=== PATIENT | male | born 1990 | race Hispanic/Latino ===

== ENCOUNTER 2019-08-22 00:03 | Emergency (ER) | payer SELFPAY ==
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
--- OUTSIDE RECORDS SUMMARY | 2019-08-22 00:05 | XMS REPORT | Summary of Care ---
:1990 Author Organization [facility] Address [address] [place] [id number] Care Team Providers Name Role Phone Pcp, Patient Does Not Have A Primary Care Provider Reason for Visit Reason Comments Establish Care Testicle Problem (Routine) Status Reason Specialty Diagnoses / Procedures Referred By Contact Referred To Contact Closed Urology Diagnoses Hydrocele, unspecified Prabhu-Rayray, Procedures CONSULT/REFERRAL UROLOGY [place] [address] [place] [address] Encounter Details Date Type Department Care Team Description 05/18/2019 Office Visit [facility] Cancer Chonoski, Chanelle Testalgia ( Primary Dx); Center-Urologic N, RELEASE OF INFORMATION CLERK Hydrocele, bilateral Oncology [address] [facility] [address] [facility] [address] [place] [id number] Allergies No Known Allergiesdocumented as of this [...] Note / History and Physical Referred by: [facility] Chief Complaint: Testicular pain / [...] file Gets together: Not on file Attends methodist service: Not on file Active member of [...]
--- OUTSIDE RECORDS SUMMARY | 2019-08-22 00:05 | XMS REPORT ---
:1990 Author Organization [facility] Address [address] [place] [address] [address] [place] [address] Care Team Providers Name Role Phone Unavailable Unavailable Unavailable Problems This patient has no known problems. Allergies, Adverse Reactions, Alerts This patient has no known allergies or adverse reactions. Medications This patient has no known medications.
[2019-08-22 00:59] LABS: Absolute Lymphocytes (CBC) 2.2 K/uL (0.7-4.9); Basophils % 0.9 % (0-1.3); Hematocrit 42.6 % (39.6-49.0); Lymphocytes % 25.7 % (15.3-44.8); MPV 11.3 fL (7.6-11.3); RBC Red Blood Cell Count 4.78 M/uL (4.33-5.43)
[2019-08-22] MEDS ORDERED: LIDOCAINE VISCOUS 2% SOLN 15 ML UDC ONE (01:09)
[2019-08-22] MEDS ORDERED: MAGNE/ALUM HYDROXD 30 ML UCUP ONE (01:09)
[2019-08-22 01:13] LABS: ALT/SGPT 91 U/L (12-78); AST/SGOT 33 U/L (15-37); Albumin 3.9 g/dL (3.4-5.0); Alkaline Phosphatase 156 U/L (45-117); BUN Blood Urea Nitrogen 15 mg/dL (7-18); Bicarbonate 28 mmol/L (21-32); Bilirubin Direct 0.1 mg/dL (0-0.2); Bilirubin Total 0.5 mg/dL (0.2-1.0); Glucose Level 100 mg/dL (74-106); Lipase 119 U/L (73-393); Potassium 3.8 mmol/L (3.5-5.1); Sodium Level 141 mmol/L (136-145)
[2019-08-22] MEDS ORDERED: FAMOTIDINE 20 MG/2 ML VIAL IV ONE (02:53)
[2019-08-22] MEDS ORDERED: CEFTRIAXONE/SWI 1gm 1 GM/10 ML SYR ONE (02:53)
--- NOTE | 2019-08-22 03:22 | ER ---
Nurse's Notes [facility] Name: Demetrio Castorena Age: 28 yrs Sex: Male : 1990 Arrival Date: 08/22/2019 Time: 00:05 Bed 6 Private MD: Diagnosis: Acute bronchiolitis;Unspecified abdominal pain Presentation: 08/22 00:30 Presenting complaint: Patient states: he is having epigastric pain since Wednesday the bb pain feels like a burning pain and is constant, pt is nauseous but has not vomited and has had no diarrhea the pain currently is 9/10. Transition of care: patient was not received from another setting of care. Onset of symptoms was August 19, 2019. Risk Assessment: Do you want to hurt yourself or someone else? Patient reports no desire to harm self or others. Initial Sepsis Screen: Does the patient meet any 2 criteria? No. Patient's initial sepsis screen is negative. Does the patient have a suspected source of infection? No. Patient's initial sepsis screen is negative. Care prior to arrival: None. 00:30 Method Of Arrival: Ambulatory bb 00:30 Acuity: HORTENCIA 3 bb Historical: - Allergies: 00:33 No Known Allergies; bb - Home Meds: 00:33 None [Active]; bb - PMHx: 00:33 None; bb - PSHx: 00:33 None; bb - Immunization history:: Adult Immunizations up to date. - Social history:: Smoking status: Patient/guardian denies using tobacco, Patient uses alcohol, Patient/guardian denies using street drugs. - Ebola Screening: : No symptoms or risks identified at this time. Screenin:12 Abuse screen: Denies threats or abuse. Denies injuries from another. Nutritional lp1 screening: No deficits noted. Tuberculosis screening: No symptoms or risk factors identified. Fall Risk None identified. Assessment: 00:40 General: Appears uncomfortable, Behavior is appropriate for age. Pain: Complains of lp1 pain in epigastric area Pain currently is 9 out of 10 on a pain scale. Quality of pain is described as sharp. Neuro: No deficits noted. Cardiovascular: No deficits noted. Respiratory: Respiratory effort is even, unlabored. GI: Abdomen is non-distended, Bowel sounds present X 4 quads. Abdomen is tender to palpation in epigastric area, right upper quadrant and left upper quadrant Reports upper abdominal pain. : No signs and/or symptoms were reported regarding the genitourinary system. EENT: No signs and/or symptoms were reported regarding the EENT system. Derm: Skin is intact, Skin is dry, Skin is normal. Musculoskeletal: No deficits noted. 01:40 Reassessment: Patient returned from CT; states some relief after GI cocktail. lp1 03:00 Reassessment: Patient appears in no apparent distress at this time. Patient is alert, lp1 oriented x 3, equal unlabored respirations, skin warm/dry/pink. Patient states feeling better. Vital Signs: 00:33 BP 146 / 93; Pulse 72; Resp 14 S; Temp 98.5(O); Pulse Ox 98% on R/A; Weight 68.04 kg bb (R); Height 5 ft. 6 in. (167.64 cm) (R); Pain 10/10; 01:13 BP 132 / 80; Pulse 82; Resp 16; Pulse Ox 99% on R/A; lp1 02:15 BP 116 / 80; Pulse 81; Resp 18; Pulse Ox 99% on R/A; lp1 03:15 BP 112 / 76; Pulse 70; Resp 16; Pulse Ox 99% on R/A; Pain 2/10; lp1 00:33 Body Mass Index 24.21 (68.04 kg, 167.64 cm) bb ED Course: 00:05 Patient arrived in ED. ag3 00:08 Uri Whitehead NP is PHCP. pm1 00:08 Eben Peguero MD is Attending Physician. pm1 00:27 Meliza Ca, ALBINO is Primary Nurse. lp1 00:33 Triage completed. bb 00:33 Arm band placed on Patient placed in an exam room, on a stretcher, on pulse oximetry. bb 00:45 Inserted saline lock: 20 gauge in right antecubital area, using aseptic technique. lp1 Blood collected. 01:13 Patient has correct armband on for positive identification. lp1 01:40 No provider procedures requiring assistance completed. lp1 01:45 CT Abd/Pelvis - IV Contrast Only In Process Unspecified. EDMS 03:00 Chest Pa And Lat (2 Views) In Process Unspecified. EDMS 03:30 IV discontinued, No redness/swelling at site. Pressure dressing applied. lp1 Administered Medications: 01:11 Drug: GI Cocktail without - (Maalox Suspension 30 ml, Lidocaine Liquid 2 % 15 lp1 ml) Route: PO; 01:45 Follow up: Response: Marked relief of symptoms lp1 03:01 Drug: Rocephin 1 grams Route: IV; Rate: calculated rate; Site: right antecubital; lp1 03:30 Follow up: IV Status: Completed infusion; IV Intake: 10ml lp1 03:02 Drug: Pepcid 20 mg Route: IVP; Site: right antecubital; lp1 03:30 Follow up: Response: No adverse reaction lp1 Intake: 03:30 IV: 10ml; Total: 10ml. lp1 Outcome: 03:21 Discharge ordered by MD. pm1 03:31 Discharged to home ambulatory, with significant other. lp1 03:31 Condition: good 03:31 Discharge instructions given to patient, Instructed on discharge instructions, follow up and referral plans. medication usage, Demonstrated understanding of instructions, follow-up care, medications, Prescriptions given X 3. 03:31 Patient left the ED. lp1 Signatures: Dispatcher [employer] EDMS Chanell Hernandez RN RN Meliza Westfall RN RN lp1 Uri Whitehead NP OSS ARCHITECT pm1 Michelle Madrigal ag3
--- NOTE | 2019-08-22 03:22 | EDPHYS ---
Physician Documentation [facility] Name: Demetrio Castorena Age: 28 yrs Sex: Male : 1990 Arrival Date: 08/22/2019 Time: 00:05 Bed 6 Private MD: ED Physician Eben Peguero HPI: 08/22 00:49 This 28 yrs old Male presents to ER via Ambulatory with complaints of Abdominal Pain. pm1 00:49 The patient presents with abdominal pain in the epigastric area. Onset: The pm1 symptoms/episode began/occurred 3 day(s) ago. The symptoms do not radiate. Associated signs and symptoms: Pertinent positives: nausea, Pertinent negatives: chest pain, constipation, diarrhea, dysuria, fever, shortness of breath, vomiting. The symptoms are described as burning. Modifying factors: The symptoms are alleviated by nothing, the symptoms are aggravated by spicy food, greasy food, lying down. Severity of pain: in the emergency department the pain is actually worse. The patient has not experienced similar symptoms in the past. The patient has not recently seen a physician. Historical: - Allergies: 00:33 No Known Allergies; bb - Home Meds: 00:33 None [Active]; bb - PMHx: 00:33 None; bb - PSHx: 00:33 None; bb - Immunization history:: Adult Immunizations up to date. - Social history:: Smoking status: Patient/guardian denies using tobacco, Patient uses alcohol, Patient/guardian denies using street drugs. - Ebola Screening: : No symptoms or risks identified at this time. ROS: 00:49 Constitutional: Negative for fever, chills, and weight loss, Eyes: Negative for injury, pm1 pain, redness, and discharge, ENT: Negative for injury, pain, and discharge, Neck: Negative for injury, pain, and swelling, Cardiovascular: Negative for chest pain, palpitations, and edema. 00:49 Back: Negative for injury and pain, : Negative for injury, bleeding, discharge, and swelling, MS/Extremity: Negative for injury and deformity, Skin: Negative for injury, rash, and discoloration, Neuro: Negative for headache, weakness, numbness, tingling, and seizure. 00:49 Respiratory: Positive for cough, sputum, Negative for shortness of breath, wheezing. 00:49 Abdomen/GI: Positive for abdominal pain, nausea, Negative for vomiting, diarrhea, constipation. Exam: 00:49 Constitutional: This is a well developed, well nourished patient who is awake, alert, pm1 and in no acute distress. Head/Face: Normocephalic, atraumatic. Eyes: Pupils equal round and reactive to light, extra-ocular motions intact. Lids and lashes normal. Conjunctiva and sclera are non-icteric and not injected. Cornea within normal limits. Periorbital areas with no swelling, redness, or edema. ENT: Nares patent. No nasal discharge, no septal abnormalities noted. Tympanic membranes are normal and external auditory canals are clear. Oropharynx with no redness, swelling, or masses, exudates, or evidence of obstruction, uvula midline. Mucous membranes moist. Neck: Trachea midline, no thyromegaly or masses palpated, and no cervical lymphadenopathy. Supple, full range of motion without nuchal rigidity, or vertebral point tenderness. No Meningismus. Chest/axilla: Normal chest wall appearance and motion. Nontender with no deformity. No lesions are appreciated. Cardiovascular: Regular rate and rhythm with a normal S1 and S2. No gallops, murmurs, or rubs. Normal PMI, no JVD. No pulse deficits. Respiratory: Lungs have equal breath sounds bilaterally, clear to auscultation and percussion. No rales, rhonchi or wheezes noted. No increased work of breathing, no retractions or nasal flaring. 00:49 Back: No spinal tenderness. No costovertebral tenderness. Full range of motion. Skin: Warm, dry with normal turgor. Normal color with no rashes, no lesions, and no evidence of cellulitis. MS/ Extremity: Pulses equal, no cyanosis. Neurovascular intact. Full, normal range of motion. 00:49 Abdomen/GI: Inspection: abdomen appears normal, Bowel sounds: normal, Palpation: soft, mild abdominal tenderness, in the epigastric area, mass, is not appreciated, rebound tenderness, is not appreciated. 00:49 Neuro: Orientation: is normal, Motor: is normal, moves all fours, Sensation: is normal, no obvious gross deficits. Vital Signs: 00:33 BP 146 / 93; Pulse 72; Resp 14 S; Temp 98.5(O); Pulse Ox 98% on R/A; Weight 68.04 kg bb (R); Height 5 ft. 6 in. (167.64 cm) (R); Pain 10/10; 01:13 BP 132 / 80; Pulse 82; Resp 16; Pulse Ox 99% on R/A; lp1 02:15 BP 116 / 80; Pulse 81; Resp 18; Pulse Ox 99% on R/A; lp1 03:15 BP 112 / 76; Pulse 70; Resp 16; Pulse Ox 99% on R/A; Pain 2/10; lp1 00:33 Body Mass Index 24.21 (68.04 kg, 167.64 cm) bb MDM: 00:[address] [facility] 02:35 Data reviewed: vital signs. Data interpreted: Pulse oximetry: on room air is 99 %. pm1 Interpretation: normal. 02:40 Counseling: I had a detailed discussion with the patient and/or guardian regarding: the pm1 historical points, exam findings, and any diagnostic results supporting the discharge/admit diagnosis, lab results, radiology results, the need for outpatient follow up, to return to the emergency department if symptoms worsen or persist or if there are any questions or concerns that arise at home. 08/22 00:36 Order name: Basic Metabolic Panel; Complete Time: 01:24 pm1 08/22 00:36 Order name: CBC with Diff; Complete Time: :24 pm08/22 00:36 Order name: Creatinine for Radiology; Complete Time: 01:24 pm1 08/22 00:36 Order name: Hepatic Function; Complete Time: 01:24 pm08/22 00:36 Order name: Lipase; Complete Time: :24 pm08/22 00:38 Order name: CT Abd/Pelvis - IV Contrast Only pm1 08/22 00:36 Order name: IV Saline Lock; Complete Time: 00:49 pm1 08/22 00:36 Order name: Labs collected and sent; Complete Time: 00:49 pm1 08/22 02:29 Order name: Chest Pa And Lat (2 Views) XRAY pm1 08/22 02:30 Order name: Chest Pa And Lat (2 Views) EDMS Administered Medications: 01:11 Drug: GI Cocktail without - (Maalox Suspension 30 ml, Lidocaine Liquid 2 % 15 lp1 ml) Route: PO; 01:45 Follow up: Response: Marked relief of symptoms lp1 03:01 Drug: Rocephin 1 grams Route: IV; Rate: calculated rate; Site: right antecubital; lp1 03:30 Follow up: IV Status: Completed infusion; IV Intake: 10ml lp1 03:02 Drug: Pepcid 20 mg Route: IVP; Site: right antecubital; lp1 03:30 Follow up: Response: No adverse reaction lp1 Disposition: 08/22/19 03:21 Discharged to Home. Impression: Unspecified abdominal pain, Acute bronchiolitis. - Condition is Stable. - Discharge Instructions: Abdominal Pain, Adult, Bronchiolitis, Pediatric, Gastritis, Adult. - Prescriptions for Pepcid 20 mg Oral Tablet - take 1 tablet by ORAL route every 12 hours for 10 days; 20 tablet. Zithromax Z- Masood 250 mg Oral Tablet - take 1 tablet by ORAL route as directed for 5 days Day 1 - take two (2) tablets one time. Day 2, 3, 4 , 5 take one (1) tablet once daily.; 6 tablet. Tessalon Perles 100 mg Oral Capsule - take 1 capsule by ORAL route every 8 hours As needed; 15 capsule. - Medication Reconciliation Form, Thank You Letter, Antibiotic Education, Prescription Opioid Use form. - Follow up: Emergency Department; When: As needed; Reason: Worsening of condition. Follow up: Private Physician; When: 2 - 3 days; Reason: Recheck today's complaints, Continuance of care, Re-evaluation by your physician. - Problem is new. - Symptoms have improved. Addendum: 08/23/2019 18:40 Co-signature as Attending Physician, Eben Peguero MD I agree with the assessment and c kwok plan of care. Signatures: Dispatcher [employer] [facility] Eben Peguero MD MD cha Ballard, Brenda, RN RN bb Meliza Ca RN RN lp1 Uri Whitehead NP VICE PRESIDENT MEDIA RELATIONS pm1 Corrections: (The following items were deleted from the chart) 08/22 03:31 03:21 08/22/2019 03:21 Discharged to Home. Impression: Unspecified abdominal painAcute lp1 bronchiolitis. Condition is Stable. Discharge Instructions: Abdominal Pain, Adult, Gastritis, Adult, Bronchiolitis, Pediatric. Prescriptions for Pepcid 20 mg Oral Tablet - take 1 tablet by ORAL route every 12 hours for 10 days; 20 tablet, Zithromax Z-Masood 250 mg Oral Tablet - take 1 tablet by ORAL route as directed for 5 days Day 1 - take two (2) tablets one time. Day 2, 3, 4 , 5 take one (1) tablet once daily.; 6 tablet. and Forms are Medication Reconciliation Form, Thank You Letter, Antibiotic Education, Prescription Opioid Use. Follow up: Emergency Department; When: As needed; Reason: Worsening of condition. Follow up: Private Physician; When: 2 - 3 days; Reason: Recheck today's complaints, Continuance of care, Re-evaluation by your physician. Problem is new. Symptoms have improved. pm1
[2019-08-22 04:49] VITALS: TEMP 98.5
[2019-08-22 04:50] VITALS: O2SAT 99
[2019-08-22 04:53] VITALS: BP 112/76
--- NOTE | 2019-08-22 12:07 | RAD REPORT ---
EXAM DESCRIPTION: CT - Abdomen Pelvis W Contrast - 08/22/2019 4:18 am CLINICAL HISTORY: 28 years Male EPIGASTRIC PAIN TECHNIQUE: Contiguous axial images obtained through the abdomen and pelvis following intravenous con trast administration. Coronal and sagittal reformatted images provided. This CT exam was performed according to our departmental dose-optimization program, which includes on e or more of the following dose reduction techniques: automated exposure control, adjustment of the m A and/or kV according to patient size, and/or use of iterative reconstruction technique. COMPARISON: No prior exams provided for comparison. FINDINGS: There is patchy bronchiolitis in the medial left lower lobe, incompletely imaged. The lung bases are otherwise clear. The liver, biliary tree, gallbladder, pancreas, spleen, adrenal glands, kidneys, urinary bladder, and osseous structures are normal. There is no bowel inflammation, obstruction, free intraperitoneal air, or ascites. The appendix is no rmal. IMPRESSION: Patchy bronchiolitis in the left lower lobe concerning for infection vs. aspiration. No acute abdominal or pelvic abnormalities. Electronically signed by: Akosua Bhatia MD 08/22/2019 1:49 AM INFUSION THERAPY NURSE Due to temporary technical issues with the PACS/Fluency reporting system, reports are being signed by the in house radiologist as a courtesy to ensure prompt reporting. The interpreting radiologist is f ully responsible for the content of the report.
--- NOTE | 2019-08-22 13:09 | RAD REPORT ---
EXAM DESCRIPTION: RAD - Chest Pa And Lat (2 Views) - 08/22/2019 2:58 am CLINICAL HISTORY: COUGH Chest pain. COMPARISON: No comparisons FINDINGS: Interstitial markings are slightly prominent which can be seen in bronchitis or asthma. No focal consolidation seen. The heart is normal in size. No displaced fractures.
== END 2019-08-22 03:31 | disposition home or self-care (01) ==
LOC: ER 00:03
DX: J21.9 Acute bronchiolitis, unspecified (principal)
CPT/HCPCS: 36415; 71046; 74177; 80048; 80076; 83690; 85025; 96365; 96375; 99284; J0696; Q9967